=== PATIENT | male | born 1985 | race Caucasian/White ===

== ENCOUNTER 2018-03-31 11:17 | Emergency (ER) | payer OTHER ==
[2018-03-31] MEDS ORDERED: DECADRON IM ONE (11:42)
[2018-03-31] MEDS ORDERED: MOTRIN PO ONE (11:42)
--- NOTE | 2018-03-31 11:42 | Emergency Department Report ---
Upper Extremity - HPI Chief Complaint: Extremity Problem,Nontraumatic Stated Complaint: LEFT HAND PAIN Time Seen by Provider: 03/31/18 11:36 Upper Extremity: Left Hand (left hand pain radiating to his left wrist denies any direct trauma but reports that he does heavy lifting.) Occurred When: 4 Days Mechanism: Other (lifting) Severity: moderate (6/10, achy and tingly to his wrist.) Symptoms: Yes Pain with Movement (left hand), No Deformity, No Limited Range of Movement, No Numbness, No Weakness, No Swelling, No Bruising/Ecchymosis, No Laceration or Abrasion Other History: This is a 32-year-old male here reports that for the past 4 days he has been having left hand pain and its radiating into his left wrist that feels achy and occasional tingling feeling. He said he does heavy lifting at work. No medication taken for pain. Pain is worse with lifting and no alleviating factor. He said he has been worse over the last 4 days but it has been something that has been ongoing and it is worse when he is working. ED Review of Systems ROS: Stated complaint: LEFT HAND PAIN Other details as noted in HPI Constitutional: denies: chills, fever Respiratory: denies: cough, shortness of breath, SOB with exertion, SOB at rest , wheezing Cardiovascular: denies: chest pain, palpitations, edema, syncope Gastrointestinal: vomiting. denies: nausea, diarrhea Genitourinary: denies: urgency, dysuria Musculoskeletal: arthralgia. denies: back pain, joint swelling, myalgia Skin: denies: rash, lesions Neurological: paresthesias (left hand and wrist). denies: headache, weakness ED Past Medical Hx - Past Medical History Previous Medical History?: No - Surgical History Past Surgical History?: Yes Hx Appendectomy: Yes Additional Surgical History: Right Knee surgery - Family History Family history: hypertension - Social History Smoking Status: Never Smoker Substance Use Type: None - Medications Home Medications: Home Medications Medication Instructions Recorded Confirmed Last Taken Type Meclizine [Antivert] 25 mg PO TID PRN #15 tablet 03/26/15 Unknown Rx Ibuprofen [Motrin] 600 mg PO Q8H PRN #15 tablet 03/31/18 Unknown Rx oxyCODONE /ACETAMINOPHEN [Percocet 1 tab PO Q6HR PRN #16 tablet 03/31/18 Unknown Rx 5/325] Upper Extremity Exam - Exam General: Vital signs noted. No distress. Alert and acting appropriately. This is a 32-year-old male presents to the hospital for left hand and wrist pain and tingling. He is well-nourished well-developed in no acute distress Head and Torso: No HEENT Abnormality, No Neck Tenderness, No Chest/Lungs Abnormality, No Abdominal Tenderness, No Back Tenderness Shoulder Exam: No Shoulder Tenderness, No Clavicle Tenderness, No Normal Range of Motion in Shoulder, No Shoulder Deformity, No AC Joint Tenderness Arm Exam: No Arm/Humerus Tenderness, No Arm Deformity Elbow: No Elbow Tenderness, No Normal Range of Motion in Elbow, No Elbow Deformity Forearm: No Forearm Tenderness, No Forearm Deformity, No Pain with Pronation, No Pain with Supination Wrist: Yes Normal ROM in Wrist (pain to range of motion to left wrist), Yes Snuffbox Tenderness (left), Yes Pain with Axial Thumb Compression (left), No Wrist Tenderness, No Wrist Deformity Hand: Yes Hand Tenderness (left hand), Yes Normal ROM in Digit(s) (full range of motion with no restriction in movement to the fingers but reports pain with movement as radiated from his hand to his distal forearm on the left.), No Hand Deformity, No Digit Tenderness, No Digit(s) Deformity, No Tendon Dysfunction CMS Exam: Yes Normal Distal Pulses (No cce. + 2 pulses in all extremities, no neurovascular compromise), Yes Normal Capillary Refill (less than 2 seconds), Yes Normal Distal Sensation (no neurovascular compromise), No Broken Skin ED Course Vital Signs 03/31/18 11:22 Temperature 98.3 F Pulse Rate 82 Respiratory 16 Rate Blood Pressure 138/81 O2 Sat by Pulse 99 Oximetry - Reevaluation(s) Reevaluation #1: Patient given Decadron 10 mg IM and Motrin 800 mg by mouth for left hand pain with tingling and voiced relief. See procedure note for splinting with Velcro wrist splint. - Orthopedic Splinting/Casting Injury #1 Side: left Upper Extremity Injury Location: wrist, hand Upper Extremity Immobilizer: sugartong splint (short above wrist) Additional Comments: Patient with good color, sensation, movement and temperature to think is soft and after splint placement. ED Medical Decision Making - Radiology Data Radiology results: report reviewed X-ray of left hand dictated by radiologist and report reviewed by myself. Patient with nondisplaced fracture of the proximal scaphoid area. Patient: AYLA RENEE JR MR#: [id number] : 1985 Acct:[id number] Age/Sex: 32 / M ADM Date: 03/31/18 Loc: ED Attending Dr: Ordering Physician: JAKE ROA Date of Service: 03/31/18 Procedure(s): XR hand 3+V LT Accession Number(s): [id number] cc: JAKE ROA Fluoro Time In Minutes: FINAL REPORT EXAM: XR HAND 3+V LT HISTORY: lt hand pain radiating to left wrist. Lifting COMPARISON: None. TECHNIQUE: Three views of the left hand FINDINGS: There is a nondisplaced fracture of the proximal scaphoid. The remainder of the bones are intact. The joint spaces are preserved. The overlying soft tissues are intact. IMPRESSION: Nondisplaced fracture of the proximal scaphoid bone. Transcribed By: ELIDA Dictated By: MAMI GO MD Electronically Authenticated By: MAMI GO MD Signed Date/Time: 03/31/18 124 DD/ 41 TD/TT: 03/31/18 124 - Medical Decision Making This is a 32-year-old patient came in reporting that he has been having left hand pain and its radiating into his left wrist on the dorsal aspect of his left hand between proximal metacarpal bone area. He denies any injury but reports heavy lifting and said he thinks that he might of strained or sprained his hand. He is here to be seen and treated Patient was seen by myself and physical exam is normal except he has positive snuffbox tenderness left and pain patient with tenderness to palpate his left wrist. He reports pain with active and passive range of motion. He had minimal swelling to the left dorsal aspect of his hand but no restriction of movement and no signs of compartment syndrome. Radial and ulnar pulses bilateral wrist 2+ and bounding and he has good color, movement, sensation temperature to both hands and wrists. Capillary refill is less than 3 seconds. He has no tenderness to his forearm elbow or arm. Patient had x-ray of left hand and it showed that he had nondisplaced scaphoid bone fracture. This was dictated by radiologist and report reviewed by myself. I discussed findings with patient and he did not seem to alarmed. I discussed treatment plan and need to follow up with her orthopedic doctor. Patient was placed in sugar tong splint and splint checked after placement and patient will good movements and temperature, color and capillary refill to fingers of left hand. Please see procedure note for splint placement. Pain is controlled with Decadron and Motrin due to suspected tendinitis from is initial interview. Assessment/plan Arthralgia right left hand and wrist-x-ray of left hand showed scaphoid bone fracture without displacement. Patient was given Decadron 10 mg IM and Motrin 800 mg when necessary emergency room suspected an tendinitis because he did not have any trauma. Scaphoid bone fracture, nondisplaced left hand-patient placed in sugar tong splint and neurovascular status stable after splint placement. Patient given referral to orthopedic and discharged home with prescription for Percocet and ibuprofen. Patient educated on splint care,, medication, Rice therapy, diagnosis, x-ray findings and need to follow up with orthopedic doctor and he voiced understanding. Discharged home in stable condition with prescription for Percocet and ibuprofen. Vital signs are stable he is afebrile and pain is stable. He understands that he needs to follow up with orthopedic doctor in 3-5 days and I also gave him referral to primary care at [facility] as he does not have a primary care doctor. - Differential Diagnosis fracture, dislocation, strain, sprain, musculoskeletal pain, tendinitis Critical care attestation.: If time is entered above; I have spent that time in minutes in the direct care of this critically ill patient, excluding procedure time. ED Disposition Clinical Impression: Hand pain, left Fracture of scaphoid bone Qualifiers: Encounter type: initial encounter Scaphoid bone location: proximal third Fracture type: closed Fracture alignment: nondisplaced Laterality: left Qualified Code(s): S62.035A - Nondisplaced fracture of proximal third of navicular [scaphoid] bone of left wrist, initial encounter for closed fracture Disposition: DC-01 TO HOME OR SELFCARE Is pt being admited?: No Does the pt Need Aspirin: No Condition: Stable Instructions: Splint Care (ED), Arthralgia (ED), Scaphoid Fracture (ED) Additional Instructions: follow-up with Dr. Yan was the orthopedic doctor. 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 Please follow discharge instructions on splint care do not take Percocet while driving or operating heavy machinery as this medication can cause drowsiness. Take Percocet for severe pain and Motrin for mild to moderate pain If he develops swelling, numbness, change of Colace to fingers of left hand and increasing pain return to emergency room. Prescriptions: Ibuprofen [Motrin] 600 mg PO Q8H PRN #15 tablet PRN Reason: mild to moderate pain oxyCODONE /ACETAMINOPHEN [Percocet 5/325] 1 tab PO Q6HR PRN #16 tablet PRN Reason: severe pain Referrals: PRIMARY CAREMD [Primary Care Provider] - 3-5 Days [facility] [Outside] - 3-5 Days TENZIN YAN MD [Staff Physician] - 2-3 Days Forms: Work/School Release Form(ED)
--- NOTE | 2018-03-31 12:48 | XRay Report ---
FINAL REPORT EXAM: XR HAND 3+V LT HISTORY: lt hand pain radiating to left wrist. Lifting COMPARISON: None. TECHNIQUE: Three views of the left hand FINDINGS: There is a nondisplaced fracture of the proximal scaphoid. The remainder of the bones are intact. The joint spaces are preserved. The overlying soft tissues are intact. IMPRESSION: Nondisplaced fracture of the proximal scaphoid bone.
[2018-03-31 13:28] VITALS: BP 122/66
== END 2018-03-31 13:27 | disposition home or self-care (01) ==
LOC: ED 11:17
DX: S62.035A Nondisplaced fracture of proximal third of navicular [scaphoid] bone of left wrist, initial encounter for closed fracture (principal); Z90.89 Acquired absence of other organs; X50.0XXA Overexertion from strenuous movement or load, initial encounter; Y93.89 Activity, other specified; Y92.89 Other specified places as the place of occurrence of the external cause; Y99.8 Other external cause status
CPT/HCPCS: 29125; 73130; 96372; 99283; J1100

== ENCOUNTER 2018-06-13 18:34 | Emergency (ER) | payer SELFPAY ==
[2018-06-13 18:41] VITALS: BP 158/95
--- NOTE | 2018-06-13 21:12 | Emergency Department Report ---
ED ENT HPI - General Chief complaint: Sore Throat Stated complaint: BODY PAIN/SORE THROAT Time Seen by Provider: 06/13/18 21:07 Source: patient Mode of arrival: Ambulatory Limitations: No Limitations - History of Present Illness MD complaint: sore throat Onset/Timin -: days(s) Location: throat Severity: moderate Severity scale (0 -10): 5 Quality: sharp Consistency: intermittent Improves with: none Worsens with: swallowing Associated Symptoms: fever, sore throat - Related Data Previous Rx's Medication Instructions Recorded Last Taken Type Meclizine [Antivert] 25 mg PO TID PRN #15 tablet 03/26/15 Unknown Rx Ibuprofen [Motrin] 600 mg PO Q8H PRN #15 tablet 03/31/18 Unknown Rx oxyCODONE /ACETAMINOPHEN [Percocet 1 tab PO Q6HR PRN #16 tablet 03/31/18 Unknown Rx 5/325] Amoxicillin 500 mg PO QID #40 capsule 06/13/18 Unknown Rx Benzocaine/Menth/Cetylpyrd 8 each MM Q2H #3 packet 06/13/18 Unknown Rx [Cepacol X Strength] Ibuprofen 800 mg PO TID PRN #30 tablet 06/13/18 Unknown Rx Allergies Allergy/AdvReac Type Severity Reaction Status Date / Time No Known Allergies Allergy Verified 06/13/18 18:39 ED Dental HPI - General Chief complaint: Sore Throat Stated complaint: BODY PAIN/SORE THROAT Time Seen by Provider: 06/13/18 21:07 Source: patient Mode of arrival: Ambulatory Limitations: No Limitations - Related Data Previous Rx's Medication Instructions Recorded Last Taken Type Meclizine [Antivert] 25 mg PO TID PRN #15 tablet 03/26/15 Unknown Rx Ibuprofen [Motrin] 600 mg PO Q8H PRN #15 tablet 03/31/18 Unknown Rx oxyCODONE /ACETAMINOPHEN [Percocet 1 tab PO Q6HR PRN #16 tablet 03/31/18 Unknown Rx 5/325] Amoxicillin 500 mg PO QID #40 capsule 06/13/18 Unknown Rx Benzocaine/Menth/Cetylpyrd 8 each MM Q2H #3 packet 06/13/18 Unknown Rx [Cepacol X Strength] Ibuprofen 800 mg PO TID PRN #30 tablet 06/13/18 Unknown Rx Allergies Allergy/AdvReac Type Severity Reaction Status Date / Time No Known Allergies Allergy Verified 06/13/18 18:39 ED Review of Systems ROS: Stated complaint: BODY PAIN/SORE THROAT Other details as noted in HPI Constitutional: fever Eyes: denies: eye pain, eye discharge, vision change ENT: throat pain Respiratory: denies: cough, shortness of breath, wheezing Cardiovascular: denies: chest pain, palpitations Endocrine: no symptoms reported Gastrointestinal: denies: abdominal pain, nausea, diarrhea Genitourinary: denies: urgency, dysuria Musculoskeletal: denies: back pain, joint swelling, arthralgia Skin: denies: rash, lesions Neurological: denies: headache, weakness, paresthesias Psychiatric: denies: anxiety, depression Hematological/Lymphatic: denies: easy bleeding, easy bruising ED Past Medical Hx - Past Medical History Previous Medical History?: No - Surgical History Hx Appendectomy: Yes Additional Surgical History: Right Knee surgery - Social History Smoking Status: Never Smoker Substance Use Type: None - Medications Home Medications: Home Medications Medication Instructions Recorded Confirmed Last Taken Type Meclizine [Antivert] 25 mg PO TID PRN #15 tablet 03/26/15 Unknown Rx Ibuprofen [Motrin] 600 mg PO Q8H PRN #15 tablet 03/31/18 Unknown Rx oxyCODONE /ACETAMINOPHEN [Percocet 1 tab PO Q6HR PRN #16 tablet 03/31/18 Unknown Rx 5/325] Amoxicillin 500 mg PO QID #40 capsule 06/13/18 Unknown Rx Benzocaine/Menth/Cetylpyrd 8 each MM Q2H #3 packet 06/13/18 Unknown Rx [Cepacol X Strength] Ibuprofen 800 mg PO TID PRN #30 tablet 06/13/18 Unknown Rx ED Physical Exam - General Limitations: No Limitations General appearance: alert, in no apparent distress - Head Head exam: Present: atraumatic, normocephalic - Eye Eye exam: Present: normal appearance, PERRL, EOMI Pupils: Present: normal accommodation - ENT ENT exam: Present: mucous membranes moist - Expanded ENT Exam Expanded Throat exam: Positive: tonsillar erythema, tonsillomegaly, tonsillar exudate. Negative: R peritonsillar mass, L peritonsillar mass - Neck Neck exam: Present: normal inspection - Respiratory Respiratory exam: Present: normal lung sounds bilaterally. Absent: respiratory distress - Cardiovascular Cardiovascular Exam: Present: regular rate, normal rhythm. Absent: systolic murmur, diastolic murmur, rubs, gallop - GI/Abdominal GI/Abdominal exam: Present: soft, normal bowel sounds - Rectal Rectal exam: Present: deferred - Extremities Exam Extremities exam: Present: normal inspection - Back Exam Back exam: Present: normal inspection - Neurological Exam Neurological exam: Present: alert, oriented X3 - Psychiatric Psychiatric exam: Present: normal affect, normal mood - Skin Skin exam: Present: warm, dry, intact, normal color. Absent: rash ED Course Vital Signs 06/13/18 18:40 Temperature 99.2 F Pulse Rate 78 Respiratory 16 Rate Blood Pressure 158/95 O2 Sat by Pulse 98 Oximetry ED Medical Decision Making - Medical Decision Making This pharyngitis with exudate plan amoxicillin and ibuprofen Cepacol throat lozenges patient follow with PCP in 2-3 days [facility] pt verbalizeda agreement and understanding of same. Critical care attestation.: If time is entered above; I have spent that time in minutes in the direct care of this critically ill patient, excluding procedure time. ED Disposition Clinical Impression: Acute pharyngitis Qualifiers: Pharyngitis/tonsillitis etiology: unspecified etiology Qualified Code(s): J02.9 - Acute pharyngitis, unspecified Disposition: TO HOME OR SELFCARE Is pt being admited?: No Does the pt Need Aspirin: No Condition: Good Instructions: Pharyngitis (ED) Prescriptions: Amoxicillin 500 mg PO QID #40 capsule Benzocaine/Menth/Cetylpyrd [Cepacol X Strength] 8 each MM Q2H #3 packet Ibuprofen 800 mg PO TID PRN #30 tablet PRN Reason: pain Referrals: PRIMARY CARE,MD [Primary Care Provider] - 3-5 Days Forms: Work/School Release Form(ED) Time of Disposition: 21:13
== END 2018-06-13 21:21 | disposition home or self-care (01) ==
LOC: ED 18:34
DX: J02.9 Acute pharyngitis, unspecified (principal); R50.9 Fever, unspecified; Z90.49 Acquired absence of other specified parts of digestive tract
CPT/HCPCS: 99282

== ENCOUNTER 2019-07-10 08:07 | Emergency (ER) | payer SELFPAY ==
--- NOTE | 2019-07-10 08:58 | Emergency Department Report ---
ED General Adult HPI - General Chief complaint: Abdominal Pain Stated complaint: ABD PAIN FOR 3 DAYS Time Seen by Provider: 07/10/19 08:39 Source: patient Mode of arrival: Ambulatory Limitations: No Limitations - History of Present Illness Initial comments: 33yo male states that he abdominal pain that is primarily LUQ pain x 3 days. He states that it is made worse by eating, he further states that drinking water is non-painful. -: Gradual Location: abdomen Radiation: flank Severity scale (0 -10): 8 Quality: aching Improves with: none Worsens with: eating Associated Symptoms: denies other symptoms Treatments Prior to Arrival: none - Related Data Previous Rx's Medication Instructions Recorded Last Taken Type Meclizine [Antivert] 25 mg PO TID PRN #15 tablet 03/26/15 Unknown Rx Ibuprofen [Motrin] 600 mg PO Q8H PRN #15 tablet 03/31/18 Unknown Rx oxyCODONE /ACETAMINOPHEN [Percocet 1 tab PO Q6HR PRN #16 tablet 03/31/18 Unknown Rx 5/325] Amoxicillin 500 mg PO QID #40 capsule 06/13/18 Unknown Rx Benzocaine/Mentho [Cepacol X 8 each MM Q2H #3 packet 06/13/18 Unknown Rx Strength] Ibuprofen [Ibuprofen 800] 800 mg PO TID PRN #30 tablet 06/13/18 Unknown Rx dexAMETHasone [Decadron] 4 mg PO Q12H #6 tablet 06/13/18 Unknown Rx raNITIdine HCl [Zantac] 150 mg PO BID 30 Days #60 tablet 07/10/19 Unknown Rx Allergies Allergy/AdvReac Type Severity Reaction Status Date / Time No Known Allergies Allergy Verified 06/13/18 18:39 ED Review of Systems ROS: Stated complaint: ABD PAIN FOR 3 DAYS Other details as noted in HPI Comment: All other systems reviewed and negative Gastrointestinal: as per HPI ED Past Medical Hx - Past Medical History Previous Medical History?: No - Surgical History Past Surgical History?: Yes Hx Appendectomy: Yes Additional Surgical History: Right Knee surgery - Social History Smoking Status: Never Smoker Substance Use Type: Marijuana - Medications Home Medications: Home Medications Medication Instructions Recorded Confirmed Last Taken Type Meclizine [Antivert] 25 mg PO TID PRN #15 tablet 03/26/15 Unknown Rx Ibuprofen [Motrin] 600 mg PO Q8H PRN #15 tablet 03/31/18 Unknown Rx oxyCODONE /ACETAMINOPHEN [Percocet 1 tab PO Q6HR PRN #16 tablet 03/31/18 Unknown Rx 5/325] Amoxicillin 500 mg PO QID #40 capsule 06/13/18 Unknown Rx Benzocaine/Mentho [Cepacol X 8 each MM Q2H #3 packet 06/13/18 Unknown Rx Strength] Ibuprofen [Ibuprofen 800] 800 mg PO TID PRN #30 tablet 06/13/18 Unknown Rx dexAMETHasone [Decadron] 4 mg PO Q12H #6 tablet 06/13/18 Unknown Rx raNITIdine HCl [Zantac] 150 mg PO BID 30 Days #60 tablet 07/10/19 Unknown Rx ED Physical Exam - General Limitations: No Limitations General appearance: alert, in no apparent distress - Head Head exam: Present: atraumatic, normocephalic - Eye Eye exam: Present: normal appearance, PERRL - ENT ENT exam: Present: normal exam, normal orophraynx, normal external ear exam - Neck Neck exam: Present: normal inspection, tenderness, full ROM - Respiratory Respiratory exam: Present: normal lung sounds bilaterally. Absent: respiratory distress, chest wall tenderness - Cardiovascular Cardiovascular Exam: Present: regular rate, normal rhythm, normal heart sounds - GI/Abdominal GI/Abdominal exam: Present: soft, tenderness (RUQ increased tenderness upon palpation), guarding, hypoactive bowel sounds - Rectal Rectal exam: Present: deferred - Extremities Exam Extremities exam: Present: normal inspection, full ROM, tenderness - Back Exam Back exam: Present: normal inspection, full ROM. Absent: CVA tenderness (R), CVA tenderness (L) - Neurological Exam Neurological exam: Present: alert, altered, oriented X3 - Psychiatric Psychiatric exam: Present: normal affect, normal mood. Absent: depressed - Skin Skin exam: Present: warm, dry, intact ED Course Vital Signs 07/10/19 07/10/19 07/10/19 08:14 08:16 13:39 Temperature 98.5 F 98.3 F Pulse Rate 69 64 Respiratory 18 15 Rate Blood Pressure 149/98 Blood Pressure 150/83 [Right] O2 Sat by Pulse 99 100 Oximetry ED Medical Decision Making - Lab Data Result diagrams: 07/10/19 09:12 07/10/19 09:12 - Medical Decision Making 33yo male states that he abdominal pain that is primarily LUQ pain x 3 days. He states that it is made worse by eating, he further states that drinking water is non-painful. Pt was explained that his labs and imaging are WNL. He was further explained that he has the symptoms and description of gastritis and GERD. In clinic he was given a GI cocktail, explained that he will be started on Zantac and given a referral to GI. Pt verbalized understanding and was Critical care attestation.: If time is entered above; I have spent that time in minutes in the direct care of this critically ill patient, excluding procedure time. ED Disposition Clinical Impression: Gastritis, GERD (gastroesophageal reflux disease) Disposition: TO HOME OR SELFCARE Is pt being admited?: No Does the pt Need Aspirin: No Condition: Stable Instructions: Gastritis (ED), Gastroesophageal Reflux Disease (ED) Additional Instructions: e was further explained that he has the symptoms and description of gastritis and GERD. In clinic he was given a GI cocktail, explained that he will be started on Zantac and given a referral to GI. Pt verbalized understanding and was Prescriptions: raNITIdine HCl [Zantac] 150 mg PO BID 30 Days #60 tablet Referrals: PRIMARY CAREMD [Primary Care Provider] - 3-5 Days JASMIN HOOD MD [Staff Physician] - 3-5 Days Time of Disposition: 14:28
[2019-07-10 09:44] LABS: Basophils % (Auto) 0.4 % (0.0-1.8); Eosinophils # (Auto) 0.1 K/mm3 (0.0-0.4); Eosinophils % (Auto) 1.9 % (0.0-4.3); Hemoglobin 15.3 gm/dl (11.8-15.2); Lymphocytes # (Auto) 2.4 K/mm3 (1.2-5.4); Lymphocytes % (Auto) 31.4 % (13.4-35.0); Mean Corpuscular HGB Conc 34 % (32-34); Mean Corpuscular Volume 92 fl (84-94); Monocytes # (Auto) 0.6 K/mm3 (0.0-0.8); Monocytes % (Auto) 7.7 % (0.0-7.3); Platelet Count 200 K/mm3 (140-440); Red Blood Count 4.89 M/mm3 (3.65-5.03); Red Cell Distribution Width 13.1 % (13.2-15.2)
[2019-07-10 10:07] LABS: Alanine Aminotransferase 23 units/L (7-56); Albumin 4.4 g/dL (3.9-5); BUN/Creatinine Ratio 15; Blood Urea Nitrogen 17 mg/dL (9-20); Calcium 9.2 mg/dL (8.4-10.2); Hemolysis Index 13
[2019-07-10 11:10] LABS: Bilirubin,Urine NEG (Negative); Blood,Urine NEG (Negative); Color,Urine Yellow (Yellow); Mucus,Urine FEW /HPF; Protein,Urine <15 mg/dL mg/dL (Negative); Urobilinogen,Urine < 2.0 mg/dL (<2.0); WBC,Urine < 1.0 /HPF (0.0-6.0)
[2019-07-10 13:49] VITALS: BP 149/98
--- NOTE | 2019-07-10 14:02 | Cat Scan Report ---
CT ABDOMEN AND PELVIS WITH CONTRAST HISTORY: Left upper quadrant abdominal pain for 2 days COMPARISON: None. TECHNIQUE: Axial CT images were obtained through the abdomen and pelvis after 100 cc of Omnipaque 300 intravenously. Sagittal and coronal reformatted images. All CT scans at this location are performed using CT dose reduction for ALARA by means of automated exposure control. FINDINGS: CT ABDOMEN: Lung Bases: Clear. Liver: No significant abnormality. Biliary: No significant abnormality. Spleen: No significant abnormality. Unenlarged. Pancreas: No significant abnormality. Adrenals: No significant abnormality. Kidneys: No significant abnormality. Lymphatics: No lymphadenopathy. Vasculature: No significant abnormality. Bowel/Peritoneum: No significant abnormality. No free air. No free fluid. Appendectomy changes are espitia spected. No inflammatory changes in the right lower quadrant. CT PELVIS: : No significant abnormality. Osseous Structures: No significant abnormality. Additional Findings: None IMPRESSION: No significant abnormality. Signer Name: Jefferson Frazier Jr, MD Signed: 07/10/2019 1:58 PM Workstation Name: [id number]
[2019-07-10] MEDS ORDERED: ALUM-MAG HYDROXIDE-SIMETHICONE 200-200-20MG/5ML ORAL LIQD 30 ML PO ONE (14:14)
[2019-07-10] MEDS ORDERED: LIDOCAINE VISCOUS 2% 15 ML ORAL LIQD PO ONE (14:15)
[2019-07-10] MEDS ORDERED: diphenhydrAMINE 25 MG/10 ML ORAL LIQUID PO ONE (14:16)
== END 2019-07-10 14:51 | disposition home or self-care (01) ==
LOC: ED 08:07
DX: K21.9 Gastro-esophageal reflux disease without esophagitis (principal); K29.70 Gastritis, unspecified, without bleeding; F12.10 Cannabis abuse, uncomplicated; Z90.89 Acquired absence of other organs
CPT/HCPCS: 36415; 74177; 80053; 81001; 82150; 83690; 85025; Q9967; Q0163

== ENCOUNTER 2020-08-30 15:57 | Emergency (ER) | payer SELFPAY ==
[2020-08-30 16:29] VITALS: BP 144/104
--- NOTE | 2020-08-30 16:29 | Emergency Department Report ---
ED General Adult HPI - General Chief complaint: Dental/Oral Stated complaint: TOOTH INFECTION Time Seen by Provider: 08/30/20 16:07 Source: patient Mode of arrival: Ambulatory Limitations: No Limitations - History of Present Illness Initial comments: Patient complains of right lower dental pain x1 week, worsening x3 days. He rates his pain as a 10/10 in severity states it worsens with chewing. He also states he has mild facial swelling, but denies any fever/chills/sweats dysphagia, or difficulty opening his jaw. Patient states he plans to make an appointment with his dental specialist tomorrow morning. He denies any past medical history - Related Data Previous Rx's Medication Instructions Recorded Last Taken Type Meclizine [Antivert] 25 mg PO TID PRN #15 tablet 03/26/15 Unknown Rx Ibuprofen [Motrin] 600 mg PO Q8H PRN #15 tablet 03/31/18 Unknown Rx oxyCODONE /ACETAMINOPHEN [Percocet 1 tab PO Q6HR PRN #16 tablet 03/31/18 Unknown Rx 5/325] Amoxicillin 500 mg PO QID #40 capsule 06/13/18 Unknown Rx Benzocaine/Mentho [Cepacol X 8 each MM Q2H #3 packet 06/13/18 Unknown Rx Strength] Ibuprofen [Ibuprofen 800] 800 mg PO TID PRN #30 tablet 06/13/18 Unknown Rx dexAMETHasone [Decadron] 4 mg PO Q12H #6 tablet 06/13/18 Unknown Rx raNITIdine HCL [Zantac] 150 mg PO BID 30 Days #60 tablet 07/10/19 Unknown Rx Acetaminophen/Codeine [Tylenol 1 tab PO Q8H PRN #10 tab 08/30/20 Unknown Rx /Codeine # 3 tab] Amoxicillin [Trimox CAP] 500 mg PO Q8H 7 Days #21 capsule 08/30/20 Unknown Rx Ibuprofen [Motrin 800 MG tab] 800 mg PO Q8HR PRN #20 tablet 08/30/20 Unknown Rx Allergies Allergy/AdvReac Type Severity Reaction Status Date / Time No Known Allergies Allergy Verified 06/13/18 18:39 ED Review of Systems ROS: Stated complaint: TOOTH INFECTION Other details as noted in HPI Constitutional: denies: chills, diaphoresis, malaise ENT: dental pain. denies: throat pain Respiratory: denies: cough, shortness of breath Cardiovascular: denies: chest pain Gastrointestinal: denies: nausea, vomiting Hematological/Lymphatic: denies: swollen glands ED Past Medical Hx - Past Medical History Previous Medical History?: No - Surgical History Past Surgical History?: No Hx Appendectomy: Yes Additional Surgical History: Right Knee surgery - Social History Smoking Status: Never Smoker Substance Use Type: Marijuana - Medications Home Medications: Home Medications Medication Instructions Recorded Confirmed Last Taken Type Meclizine [Antivert] 25 mg PO TID PRN #15 tablet 03/26/15 Unknown Rx Ibuprofen [Motrin] 600 mg PO Q8H PRN #15 tablet 03/31/18 Unknown Rx oxyCODONE /ACETAMINOPHEN [Percocet 1 tab PO Q6HR PRN #16 tablet 03/31/18 Unknown Rx 5/325] Amoxicillin 500 mg PO QID #40 capsule 06/13/18 Unknown Rx Benzocaine/Mentho [Cepacol X 8 each MM Q2H #3 packet 06/13/18 Unknown Rx Strength] Ibuprofen [Ibuprofen 800] 800 mg PO TID PRN #30 tablet 06/13/18 Unknown Rx dexAMETHasone [Decadron] 4 mg PO Q12H #6 tablet 06/13/18 Unknown Rx raNITIdine HCL [Zantac] 150 mg PO BID 30 Days #60 tablet 07/10/19 Unknown Rx Acetaminophen/Codeine [Tylenol 1 tab PO Q8H PRN #10 tab 08/30/20 Unknown Rx /Codeine # 3 tab] Amoxicillin [Trimox CAP] 500 mg PO Q8H 7 Days #21 capsule 08/30/20 Unknown Rx Ibuprofen [Motrin 800 MG tab] 800 mg PO Q8HR PRN #20 tablet 08/30/20 Unknown Rx ED Physical Exam - General Limitations: No Limitations General appearance: alert, in no apparent distress - Head Head exam: Present: atraumatic, normocephalic - Eye Eye exam: Present: normal appearance. Absent: scleral icterus - Expanded ENT Exam Expanded Mouth exam: Absent: drooling, trismus Teeth exam: Present: dental caries 1 - Dental Tenderness (Mild surrounding erythema of the gums noted; no obvious abscess noted; no overlying facial swelling/cellulitis noted) Throat exam: Positive: normal inspection - Neck Neck exam: Present: normal inspection - Respiratory Respiratory exam: Absent: respiratory distress - Cardiovascular Cardiovascular Exam: Present: regular rate - Neurological Exam Neurological exam: Present: alert, oriented X3 - Psychiatric Psychiatric exam: Present: normal affect, normal mood - Skin Skin exam: Present: warm, dry, intact, normal color. Absent: rash ED Course Vital Signs 08/30/20 16:06 Temperature 98.0 F Pulse Rate 72 Respiratory 18 Rate Blood Pressure 144/104 O2 Sat by Pulse 97 Oximetry ED Medical Decision Making - Medical Decision Making Patient complains of right lower dental pain x1 week, worsening x3 days. He rates his pain as a 10/10 in severity states it worsens with chewing. He also states he has mild facial swelling, but denies any fever/chills/sweats dysphagia , or difficulty opening his jaw. Patient states he plans to make an appointment with his dental specialist tomorrow morning. He denies any past medical history Prescription for Amoxil given for dental infection. Recommend follow-up with dental specialist tomorrow morning as discussed. Also discussed need for follow-up with primary care provider for elevated blood pressure. Discussed signs and symptoms that should prompt immediate return to the emergency department in detail with patient who verbalizes understanding. Critical care attestation.: If time is entered above; I have spent that time in minutes in the direct care of this critically ill patient, excluding procedure time. ED Disposition Clinical Impression: Dental infection, Elevated blood pressure reading in office with diagnosis of hypertension Disposition: TO HOME OR SELFCARE Is pt being admited?: No Condition: Stable Instructions: Dental Abscess, Hypertension (ED), Hypertension, Adult, [id number] Additional Instructions: Please follow up with your dental specialist within 2 days Prescriptions: Ibuprofen [Motrin 800 MG tab] 800 mg PO Q8HR PRN #20 tablet PRN Reason: pain Amoxicillin [Trimox CAP] 500 mg PO Q8H 7 Days #21 capsule Acetaminophen/Codeine [Tylenol /Codeine # 3 tab] 1 tab PO Q8H PRN #10 tab PRN Reason: Pain , Severe (7-10) Referrals: [facility] [Provider Group] - 3-5 Days
[2020-08-30] MEDS ORDERED: IBUPROFEN 800 MG TAB PO ONE (16:49)
== END 2020-08-30 17:36 | disposition home or self-care (01) ==
LOC: ED 15:57
DX: I10 Essential (primary) hypertension (principal); K04.7 Periapical abscess without sinus; F12.90 Cannabis use, unspecified, uncomplicated; Z79.899 Other long term (current) drug therapy; Z90.49 Acquired absence of other specified parts of digestive tract; Z98.890 Other specified postprocedural states
CPT/HCPCS: 99282

== ENCOUNTER 2021-12-27 08:53 | Emergency (ER) | payer SELFPAY ==
[2021-12-27 08:57] VITALS: BP 165/114
--- NOTE | 2021-12-27 09:22 | Emergency Department Report ---
ED ENT HPI - General Chief complaint: Dental/Oral Stated complaint: TOOTHACHE Time Seen by Provider: 12/27/21 09:05 Source: patient Mode of arrival: Ambulatory Limitations: No Limitations - History of Present Illness Initial comments: Patient is a 36-year-old male that comes to the ER with right lower dental pain. He has no trismus. No abscess. He is taking p.o. Controlling secretions. He has not seen a dentist. Blood pressure noted to be elevated in triage. Patient denies chest pain or shortness of breath. He states that his pain is causing his blood pressure to be high. MD complaint: tooth pain -: Gradual, days(s) Severity: moderate Severity scale (0 -10): 4 Quality: aching Consistency: constant Improves with: none Worsens with: none Context- Dental: history of dental caries Associated Symptoms: toothache. denies: fever, cough, gum swelling, pain with swallowing, sore throat, tinnitus, hearing loss, discharge from ear, rhinorrhea - Related Data Previous Rx's Medication Instructions Recorded Last Taken Type Amoxicillin [Trimox CAP] 500 mg PO BID #20 capsule 12/27/21 Unknown Rx Ibuprofen [Motrin] 800 mg PO Q8HR PRN #30 tablet 12/27/21 Unknown Rx Allergies Allergy/AdvReac Type Severity Reaction Status Date / Time No Known Allergies Allergy Verified 06/13/18 18:39 ED Dental HPI - General Chief complaint: Dental/Oral Stated complaint: TOOTHACHE Time Seen by Provider: 12/27/21 09:05 Source: patient Mode of arrival: Ambulatory Limitations: No Limitations - Related Data Previous Rx's Medication Instructions Recorded Last Taken Type Amoxicillin [Trimox CAP] 500 mg PO BID #20 capsule 12/27/21 Unknown Rx Ibuprofen [Motrin] 800 mg PO Q8HR PRN #30 tablet 12/27/21 Unknown Rx Allergies Allergy/AdvReac Type Severity Reaction Status Date / Time No Known Allergies Allergy Verified 18 18:39 ED Review of Systems ROS: Stated complaint: TOOTHACHE Other details as noted in HPI Comment: All other systems reviewed and negative ED Past Medical Hx - Past Medical History Previous Medical History?: No - Surgical History Past Surgical History?: Yes Hx Appendectomy: Yes Additional Surgical History: Right Knee surgery - Family History Family history: no significant - Social History Smoking Status: Never Smoker Substance Use Type: Marijuana - Medications Home Medications: Home Medications Medication Instructions Recorded Confirmed Last Taken Type Amoxicillin [Trimox CAP] 500 mg PO BID #20 capsule 12/27/21 Unknown Rx Ibuprofen [Motrin] 800 mg PO Q8HR PRN #30 tablet 12/27/21 Unknown Rx ED Physical Exam - General Limitations: No Limitations General appearance: alert, in no apparent distress - Head Head exam: Present: atraumatic, normocephalic - Eye Eye exam: Present: normal appearance - ENT ENT exam: Present: mucous membranes moist - Expanded ENT Exam Expanded Ear exam: Present: normal external inspection Mouth exam: Absent: drooling, trismus, muffled voice, tongue normal, tongue elevation, laceration Teeth exam: Present: dental caries 1 - Other (caries) Throat exam: Positive: normal inspection - Neck Neck exam: Present: normal inspection - Respiratory Respiratory exam: Present: normal lung sounds bilaterally. Absent: respiratory distress - Cardiovascular Cardiovascular Exam: Present: regular rate, normal rhythm. Absent: systolic murmur, diastolic murmur, rubs, gallop - GI/Abdominal GI/Abdominal exam: Present: soft, normal bowel sounds - Rectal Rectal exam: Present: deferred - Extremities Exam Extremities exam: Present: normal inspection - Back Exam Back exam: Present: normal inspection - Neurological Exam Neurological exam: Present: alert, oriented X3 - Psychiatric Psychiatric exam: Present: normal affect, normal mood - Skin Skin exam: Present: warm, dry, intact, normal color. Absent: rash ED Course Vital Signs 12/27/21 08:55 Temperature 97.8 F Pulse Rate 67 Respiratory 18 Rate Blood Pressure 165/114 [Right] O2 Sat by Pulse 98 Oximetry ED Medical Decision Making - Medical Decision Making Vital Signs 12/27/21 08:55 Temperature 97.8 F Pulse Rate 67 Respiratory 18 Rate Blood Pressure 165/114 [Right] O2 Sat by Pulse 98 Oximetry ABCs intact. Controlling secretions. No trismus. No active process. No Ludewig's. Taking p.o. Patient discharged home with discharge plan of care including diet, activity, medications and follow-up. He verbalizes understanding of the need to see a dentist for definitive treatment of his dental caries. I explained to patient that his blood pressure was elevated today. I have asked him to monitor his blood pressure and if it remains elevated he should see PCP. Referrals been given. On discharge exam patient has no chest pain or s hortness of breath. He thinks that his pain iscausing his blood pressure to be elevated - Differential Diagnosis Dental pain rule out abscess Critical care attestation.: If time is entered above; I have spent that time in minutes in the direct care of this critically ill patient, excluding procedure time. ED Disposition Clinical Impression: Pain, dental, Elevated blood pressure reading Disposition: HOME / SELF CARE / HOMELESS Is pt being admited?: No Does the pt Need Aspirin: No Condition: Stable Instructions: Hypertension, Adult, Tooth Injuries Additional Instructions: Medication as ordered today follow-up with dentist as soon as possible for definitive care Referral below Blood pressure is elevated today. It may be due to your pain. Continue to monitor. If it remains elevated follow-up with PCP. Referral below. Prescriptions: Ibuprofen [Motrin] 800 mg PO Q8HR PRN #30 tablet PRN Reason: Pain, Moderate (4-6) Amoxicillin [Trimox CAP] 500 mg PO BID #20 capsule Referrals: [facility] [Outside] - 3-5 Days [facility] [Outside] - 3-5 Days TIM KERN MD [Staff Physician] - 3-5 Days Forms: Work/School Release Form(ED) Time of Disposition: 09:20
== END 2021-12-27 11:53 | disposition home or self-care (01) ==
LOC: ED 08:53
DX: K08.89 Other specified disorders of teeth and supporting structures (principal); I10 Essential (primary) hypertension; Z98.890 Other specified postprocedural states; Z79.899 Other long term (current) drug therapy
CPT/HCPCS: 99282

== ENCOUNTER 2022-04-02 11:36 | Emergency (ER) | payer SELFPAY ==
[2022-04-02 11:50] VITALS: BP 160/103
[2022-04-02] MEDS ORDERED: traMADol 50 MG TAB PO ONE (13:21)
[2022-04-02] MEDS ORDERED: AMOXICILLIN/K CLAV 875/125MG TAB PO ONE (13:21)
--- NOTE | 2022-04-02 13:27 | Emergency Department Report ---
ED General Adult HPI - General Chief complaint: Dental/Oral Stated complaint: TOOTH INFECTION Time Seen by Provider: 04/02/22 11:58 Source: patient Mode of arrival: Ambulatory Limitations: No Limitations - History of Present Illness Initial comments: Is a 36-year-old male who presents for dental pain x1 week. Patient has history of chronic dental caries. There is no fevers no chills no gum or facial swelling. Patient is tolerating p.o. intake. There is no throat or ear pain. - Related Data Previous Rx's Medication Instructions Recorded Last Taken Type Amoxicillin [Trimox CAP] 500 mg PO BID #20 capsule 12/27/21 Unknown Rx Ibuprofen [Motrin] 800 mg PO Q8HR PRN #30 tablet 12/27/21 Unknown Rx Amoxicillin/K Clav Tab [Augmentin 1 tab PO BID 7 Days #14 tab 04/02/22 Unknown Rx 875 mg] Ibuprofen [Motrin 800 MG tab] 800 mg PO Q8HR PRN #30 tablet 04/02/22 Unknown Rx Allergies Allergy/AdvReac Type Severity Reaction Status Date / Time No Known Allergies Allergy Verified 04/02/22 11:50 ED Review of Systems ROS: Stated complaint: TOOTH INFECTION Other details as noted in HPI Constitutional: denies: chills, fever Eyes: denies: eye pain, eye discharge, vision change ENT: dental pain Respiratory: denies: cough, shortness of breath, wheezing Cardiovascular: denies: chest pain, palpitations Endocrine: no symptoms reported Gastrointestinal: denies: abdominal pain, nausea, vomiting, diarrhea Genitourinary: denies: urgency, dysuria Musculoskeletal: denies: back pain, joint swelling, arthralgia Skin: denies: rash, lesions Neurological: denies: headache, weakness, paresthesias Psychiatric: denies: anxiety, depression Hematological/Lymphatic: denies: easy bleeding, easy bruising ED Past Medical Hx - Surgical History Hx Appendectomy: Yes Additional Surgical History: Right Knee surgery - Social History Smoking Status: Never Smoker Substance Use Type: Marijuana - Medications Home Medications: Home Medications Medication Instructions Recorded Confirmed Last Taken Type Amoxicillin [Trimox CAP] 500 mg PO BID #20 capsule 12/27/21 Unknown Rx Ibuprofen [Motrin] 800 mg PO Q8HR PRN #30 tablet 12/27/21 Unknown Rx Amoxicillin/K Clav Tab [Augmentin 1 tab PO BID 7 Days #14 tab 04/02/22 Unknown Rx 875 mg] Ibuprofen [Motrin 800 MG tab] 800 mg PO Q8HR PRN #30 tablet 04/02/22 Unknown Rx ED Physical Exam - General Limitations: No Limitations General appearance: alert, in no apparent distress - Head Head exam: Present: normocephalic, normal inspection - Eye Eye exam: Present: EOMI Pupils: Present: normal accommodation - ENT ENT exam: Present: mucous membranes moist, TM's normal bilaterally, normal external ear exam - Expanded ENT Exam Expanded Mouth exam: Absent: trismus Teeth exam: Present: dental caries (17, mild erythema, no focal abscess no abdominal facial swelling) Throat exam: Positive: normal inspection, other (Uvula midline no exudate no lesions no swelling no stridor) - Neck Neck exam: Present: normal inspection, full ROM. Absent: tenderness, lymphadenopathy - Respiratory Respiratory exam: Present: normal lung sounds bilaterally. Absent: respiratory distress, wheezes - Cardiovascular Cardiovascular Exam: Present: regular rate, normal rhythm, normal heart sounds. Absent: systolic murmur, diastolic murmur, rubs, gallop - GI/Abdominal GI/Abdominal exam: Present: soft, normal bowel sounds. Absent: distended, tenderness, bruit, hernia - Rectal Rectal exam: Present: deferred - Extremities Exam Extremities exam: Present: normal inspection, full ROM. Absent: tenderness - Back Exam Back exam: Present: normal inspection, full ROM. Absent: tenderness - Neurological Exam Neurological exam: Present: alert, oriented X3 - Psychiatric Psychiatric exam: Present: normal affect, normal mood - Skin Skin exam: Present: warm, dry, intact, normal color. Absent: rash ED Course Vital Signs 04/02/22 11:46 Temperature 98 F Pulse Rate 71 Respiratory 18 Rate Blood Pressure 160/103 [Left] O2 Sat by Pulse 99 Oximetry ED Medical Decision Making - Medical Decision Making Patient 36-year-old male presents for dental pain. Exam normal no focal abscess no gum or facial swelling airway remains patent. Plan DC home with prescriptions. Follow-up with dentist in 2 to 3 days. Return to emergency department should symptoms worsen. Patient verbalized agreement understanding with discharge plan. Patient DC'd home in stable condition at this time. Critical care attestation.: If time is entered above; I have spent that time in minutes in the direct care of this critically ill patient, excluding procedure time. ED Disposition Clinical Impression: Infected dental caries Disposition: 01 HOME / SELF CARE / HOMELESS Is pt being admited?: No Does the pt Need Aspirin: No Condition: Stable Instructions: Preventive Dental Care, Adult Additional Instructions: Take medication as prescribed, follow-up with your dentist in 2 to 3 days. Return to emergency department should symptoms worsen. Prescriptions: Amoxicillin/K Clav Tab [Augmentin 875 mg] 1 tab PO BID 7 Days #14 tab Ibuprofen [Motrin 800 MG tab] 800 mg PO Q8HR PRN #30 tablet PRN Reason: Pain Referrals: [facility] [Outside] - 3-5 Days Forms: Work/School Release Form(ED) Time of Disposition: 13:28
== END 2022-04-02 22:07 | disposition home or self-care (01) ==
LOC: ED 11:36
DX: K02.9 Dental caries, unspecified (principal); F12.90 Cannabis use, unspecified, uncomplicated; Z90.89 Acquired absence of other organs
CPT/HCPCS: 99282